=== PATIENT | female | born 1990 | race Caucasian/White ===

== ENCOUNTER 2018-06-26 08:02 | Inpatient (IN) | payer OTHER ==
[~2018-06-26] VITALS: Ht 157.5 cm; Wt 76.0 kg
[2018-06-26 08:13] VITALS: Ht 157.5 cm; Wt 76.0 kg
[2018-06-26 08:49] LABS: microscopic required? YES; urine erythrocyte 3+ (NEGATIVE)
[2018-06-26 09:58] LABS: BASOPHIL % 0.7 % (0-2); PLATELET COUNT 311 x10^3mcL (130-400); RED CELL DISTRIBUTION WIDTH 13.6 % (11.5-14.5)
[2018-06-26 10:12] LABS: CALCIUM 8.2 mg/dL (8.5-10.1); CARBON DIOXIDE 27.1 mmol/L (21-32); CHLORIDE SERUM 106 mmol/L (98-107); CREATININE SERUM 0.7 mg/dL (0.6-1.0); GFR1 > 60 mL/min; GLUCOSE SERUM 73 mg/dL (74-106); POTASSIUM SERUM 3.9 mmol/L (3.5-5.1); SODIUM SERUM 140 mmol/L (136-145)
[2018-06-26 10:25] LABS: ALKALINE PHOSPHATASE 118 U/L (46-116); ALT/SGPT 29 U/L (14-59); AST/SGOT 23 U/L (15-37); BILIRUBIN TOTAL 0.3 mg/dL (0.20-1.00); TOTAL PROTEIN, SERUM 6.6 g/dL (6.4-8.2)
[2018-06-26 11:58] LABS: AMPHETAMINE QUAL UR NONE DETECTED (See below)
[2018-06-26 12:07] LABS: CHOLESTEROL/HDL RATIO 3.5; MAGNESIUM 1.8 mg/dL (1.8-2.4)
[2018-06-26 12:15] LABS: T3 TOTAL 1.22 ng/mL
[2018-06-26 12:45] LABS: FREE T4 0.94 ng/dL (0.76-1.46); FREE THYROXINE INDEX 2.9 ug/dL (1.4-4.5); T4(THYROXINE) 9.3 ug/dL (4.7-13.3)
[2018-06-26 14:59] VITALS: BP 110/62
[2018-06-26 17:13] VITALS: BP 100/64
[2018-06-26 21:29] VITALS: BP 101/55
[2018-06-27 05:40] VITALS: BP 106/54
[2018-06-27 07:56] VITALS: BP 109/60
[2018-06-27 08:28] LABS: CALCIUM 8.6 mg/dL (8.5-10.1); CARBON DIOXIDE 22.8 mmol/L (21-32); CHLORIDE SERUM 104 mmol/L (98-107); CREATININE SERUM 0.7 mg/dL (0.6-1.0); GFR1 > 60 mL/min; GLUCOSE SERUM 72 mg/dL (74-106); POTASSIUM SERUM 3.6 mmol/L (3.5-5.1); SODIUM SERUM 141 mmol/L (136-145)
[2018-06-27 08:44] LABS: BASOPHIL % 0.7 % (0-2); PLATELET COUNT 280 x10^3mcL (130-400); RED CELL DISTRIBUTION WIDTH 13.4 % (11.5-14.5)
[2018-06-27] MEDS ORDERED: NITROFURANTOIN100 MG PO (10:39)
[2018-06-27] MEDS ORDERED: BD LACTINEX1.4 MG PO (10:40)
[2018-06-27 10:50] VITALS: BP 109/60
[2018-06-27 12:14] VITALS: BP 116/65
== END 2018-06-27 12:54 | disposition home or self-care (01) | DRG 561 ==
LOC: ED 08:02 → MU 11:15
PROVIDERS: Emergency Medicine; Family Medicine
DX: O86.12 Endometritis following delivery (principal); E44.0 Moderate protein-calorie malnutrition; O86.20 Urinary tract infection following delivery, unspecified; Z68.30 Body mass index [BMI] 30.0-30.9, adult; O99.215 Obesity complicating the puerperium; O25.3 Malnutrition in the puerperium
CPT/HCPCS: 83880; 84439; J0295; J1580; J1885; J2270; J3490; J7030; Q0092